=== PATIENT | male | born 1950 | race African-American/Black ===

== ENCOUNTER 2017-12-13 11:47 | Inpatient (IN) | payer OTHER ==
[2017-12-13 15:27] VITALS: BMI 25.1
--- NOTE | 2017-12-13 18:11 | HP ---
COWS - Scale Resting Pulse: 0= [place] 80 or Below Sweatin= Chills/Flushing Restless Observation: 1= Difficult to Sit Still Pupil Size: 1= Pupils >than Normal Bone or Joint Aches: 1= Mild Discomfort Runny Nose/ Eye Tearin= Runny Nose/Eyes GI Upset > 30mins: 3= Vomiting/Diarrhea Tremor Observation: 1= Tremor [place], Not Seen Yawning Observation: 2= >3x During Session Anxiety or Irritability: 2=Irritable/Anxious Goose Flesh Skin: 3=Piloerection COWS Score: 17 CIWA Score - CIWA Score Nausea/Vomitin-Int. Nausea w/Dry Heave Muscle Tremors: 3 Anxiety: 3 Agitation: 3 Paroxysmal Sweats: 3 Orientation: 0-Oriented Tacttile Disturbances: 1-Very Mild Itch/Numbness Auditory Disturbances: 0-None Visual Disturbances: 0-None Headache: 0-None Present CIWA-Ar Total Score: 17 Admission ROS S - HPI Chief Complaint: alcohol and opioid withdrawal symptoms Allergies/Adverse Reactions: Allergies Allergy/AdvReac Type Severity Reaction Status Date / Time No Known Allergies Allergy Verified 12/13/17 17:42 History of Present Illness: 67 yo male with heroin (paranal), alcohol and marijuana. Reports two weeks ago went [facility] for left leg swelling. Reports last detox four weeks ago at [facility]. PMHX: Hep C, and depression. Denies suicidal / homicidal ideation or hx of suicide attempts. Reports hx of OD x1 about one year ago. Denies hx of seizures or blackouts. Reports longest period sobriety 2 years. Exam Limitations: No Limitations - Ebola screening Have you traveled outside of the country in the last 21 days: No Have you had contact with anyone from an Ebola affected area: No Have you been sick,other than usual withdrawal symptoms: No Do you have a fever: No - Review of Systems Constitutional: Chills, Diaphoresis, Loss of Appetite, Changes in sleep, Unintentional Wgt. Loss EENT: reports: Dental Problems (poor dentition) Respiratory: reports: No Symptoms reported Cardiac: reports: Other (hx of frequent chest pain that comes and goes. denies chest pain at this time) GI: reports: Nausea, Poor Appetite, Poor Fluid Intake, Vomiting, Abdominal cramping : reports: No Symptoms Reported Musculoskeletal: reports: Back Pain, Joint Pain Integumentary: reports: No Symptoms Reported Neuro: reports: No Symptoms reported Endocrine: reports: Increased Thirst Hematology: reports: No Symptoms Reported Psychiatric: reports: Mood/Affect Appropiate, Orientated x3, Anxious Other Systems: Reviewed and Negative Patient History - Patient Medical History Hx Anemia: No Hx Asthma: No Hx Chronic Obstructive Pulmonary Disease (COPD): No Hx Cancer: No Hx Cardiac Disorders: No Hx Congestive Heart Failure: No Hx Hypertension: No Hx Hypercholesterolemia: No Hx Pacemaker: No HX Cerebrovascular Accident: No Hx Seizures: No Hx Dementia: No Hx Diabetes: No Hx Gastrointestinal Disorders: No Hx Liver Disease: Yes (Hep C ) Hx Genitourinary Disorders: No Hx Sexually Transmitted Disorders: No Hx Renal Disease (ESRD): No Hx Thyroid Disease: No Hx Human Immunodeficiency Virus (HIV): No Hx Hepatitis C: Yes Hx Depression: Yes Hx Suicide Attempt: No Hx Bipolar Disorder: No Hx Schizophrenia: No - Patient Surgical History Past Surgical History: No - PPD History Previous Implant?: No Documented Results: Negative w/o proof PPD to be Administered?: Yes - Smoking Cessation Smoking history: Never smoked Hx Chewing Tobacco Use: No Initiated information on smoking cessation: No - Substance & Tx. History Hx Alcohol Use: Yes Hx Substance Use: Yes Substance Use Type: Alcohol, Heroin, Marijuana Hx Substance Use Treatment: Yes ( Reports last detox four weeks ago at [facility].) - Substances Abused Heroin Route: SNIFF Frequency: Daily Amount used: 1 BUNDLE Age of first use: 15 Date of Last Use: 12/13/17 Alcohol Route: Oral Frequency: Daily Amount used: 4 PINTS Age of first use: 15 Date of Last Use: 12/13/17 Family Disease History - Family Disease History Family History: Unable to Obtain Admission Physical Exam BHS - Vital Signs Vital Signs: Vital Signs - 24 hr 12/13/17 15:25 Temperature 96 F L Pulse Rate 54 L Respiratory 20 Rate Blood Pressure 131/73 - Physical General Appearance: Yes: Disheveled, Moderate Distress, Thin, Tremorous, Sweating, Anxious HEENTM: Yes: EOMI, Hearing grossly Normal, Normal ENT Inspection, Normocephalic , Normal Voice, JOBY, Pharynx Normal, Tm's normal, Other (poor dentition) Respiratory: Yes: Chest Non-Tender, Lungs Clear, Normal Breath Sounds, No Respiratory Distress, No Accessory Muscle Use Neck: Yes: No masses,lesions,Nodules, Trachea in good position Breast: Yes: Breast Exam Deferred Cardiology: Yes: Regular Rhythm, Regular Rate Abdominal: Yes: Normal Bowel Sounds, Non Tender, Flat, Soft Genitourinary: Yes: Within Normal Limits Back: Yes: Normal Inspection Musculoskeletal: Yes: full range of Motion, Gait Steady, Pelvis Stable, Back pain Extremities: Yes: Normal Capillary Refill, Normal Inspection, Normal Range of Motion, Non-Tender Neurological: Yes: automotive paint technician II-XII NML intact, Fully Oriented, Alert, Motor Strength 5/5, Depressed Affect Integumentary: Yes: Normal Color, Warm, Diaphoresis Lymphatic: Yes: Within Normal Limits - Diagnostic (1) Alcohol dependence with withdrawal Current Visit: Yes Status: Acute Qualifiers: Complication of substance-induced condition: uncomplicated Qualified Code(s ): F10.230 - Alcohol dependence with withdrawal, uncomplicated (2) Opioid dependence with withdrawal Current Visit: Yes Status: Acute (3) Nausea and vomiting Current Visit: Yes Status: Acute Qualifiers: Vomiting type: unspecified Vomiting Intractability: unspecified Qualified Code(s): R11.2 - Nausea with vomiting, unspecified (4) Hepatitis C Current Visit: Yes Status: Chronic Qualifiers: Viral hepatitis chronicity: chronic Hepatic coma status: without hepatic coma Qualified Code(s): B18.2 - Chronic viral hepatitis C (5) Marijuana dependence Current Visit: Yes Status: Acute Cleared for Admission S - Detox or Rehab [facility] Level of Care: Medically Managed Detox Regimen/Protocol: Methadone/Librium S Breath Alcohol Content Breath Alcohol Content: 0 Urine Drug Screen - Results Drug Screen Negative: No Urine Drug Screen Results: THC-Marijuana, OPI-Opiates, BZO-Benzodiazepines
[2017-12-13] MEDS ORDERED: MAGNESIUM CITRATE 300 ML BOTTLE PO PRN (18:22)
[2017-12-13] MEDS ORDERED: P-EPHED 60MG/TRIPROLIDI 2.5MG TABLET PO PRN (18:22)
[2017-12-13] MEDS ORDERED: MAGNESIUM HYDROX 2400MG/30ML ORAL SUSPENSION 30 ML CUP PO PRN (18:22)
[2017-12-13] MEDS ORDERED: MENTHOL/PHENOL 1 EACH UD MM PRN (18:22)
[2017-12-13] MEDS ORDERED: LOPERAMIDE HCL 2 MG CAPSULE PO PRN (18:22)
[2017-12-13] MEDS ORDERED: MAG HYDROX/AL HYDROX/SIMETH 30 ML UNIT-DOSE CUP PO PRN (18:22)
[2017-12-13] MEDS ORDERED: ACETAMINOPHEN 325 MG TABLET (FP) PO PRN (18:22)
[2017-12-13] MEDS ORDERED: guaiFENesin/D-METHORPHAN HB 10 ML UNIT-DOSE CUPS PO PRN (18:22)
[2017-12-13] MEDS ORDERED: chlordiazePOXIDE HCL 25 MG CAPSULE PO PRN (18:22)
[2017-12-13] MEDS ORDERED: IBUPROFEN 400 MG TABLET (FP) PO PRN (18:22)
[2017-12-13] MEDS ORDERED: ONDANSETRON *ODT* 4 MG TABLET SL PRN (18:35)
[2017-12-13] MEDS ORDERED: METHADONE HCL 10 MG TABLET (FOR DETOX USE ONLY) PO ONE ×2 (18:45→23:00)
[2017-12-13] MEDS ORDERED: chlordiazePOXIDE HCL 25 MG CAPSULE PO ONE (18:45)
[2017-12-13] MEDS: THIAMINE HCL 100 MG TABLET (FP) PO SCH (22:35)
[2017-12-13] MEDS: chlordiazePOXIDE HCL 25 MG CAPSULE PO SCH (22:35)
[2017-12-14 03:04] LABS: URINE APPEARANCE CLEAR; URINE BILIRUBIN NEGATIVE (<2.0 mg/dL); URINE COLOR AMBER; URINE GLUCOSE (UA) NEGATIVE (NEGATIVE); URINE KETONE 1+ (NEGATIVE); URINE LEUK ESTERASE NEGATIVE (NEGATIVE); URINE NITRITE NEGATIVE (NEGATIVE); URINE UROBILINOGEN 4.0 E.U/dl mg/dL (0.2-1.0)
[2017-12-14 03:09] LABS: URINE PROTEIN 2+ (NEGATIVE)
[2017-12-14 03:13] LABS: EPI CELLS RARE /HPF (FEW); URINE BACTERIA RARE /hpf (NONE SEEN); URINE HYALINE CAST 12 /lpf; URINE MUCUS MANY
[2017-12-14] MEDS: chlordiazePOXIDE HCL 25 MG CAPSULE PO SCH ×4 (05:53→22:13)
[2017-12-14] MEDS ORDERED: METHADONE HCL 10 MG TABLET (FOR DETOX USE ONLY) PO SCH (10:00)
[2017-12-14] MEDS: PRENATAL VITAMINS W/ FOLIC ACID TABLET (FP) PO SCH (10:13)
--- NOTE | 2017-12-14 10:30 | EKG ---
Test Reason : Blood Pressure : / mmHG Vent. Rate : 054 BPM Atrial Rate : 054 BPM P-R Int : 156 ms QRS Dur : 086 ms QT Int : 458 ms P-R-T Axes : 030 -10 030 degrees QTc Int : 434 ms POOR DATA QUALITY, INTERPRETATION MAY BE ADVERSELY AFFECTED SINUS BRADYCARDIA OTHERWISE NORMAL ECG NO PREVIOUS ECGS AVAILABLE Confirmed by JANKI KWAN MD ([id number]) on 12/14/2017 10:30:00 AM Referred By: Confirmed By:JANKI KWAN MD
[2017-12-14 10:53] LABS: HEMATOCRIT 42.2 % (35.4-49); HEMOGLOBIN 14.4 GM/dL (11.7-16.9); MCH 31.6 pg (25.7-33.7); MCHC 34.1 g/dl (32.0-35.9); MEAN CELL VOLUME 92.6 fl (80-96); MEAN PLT VOLUME 8.9 fl (7.5-11.1); PLATELET COUNT 246 K/MM3 (134-434); RBC 4.56 M/mm3 (4.00-5.60); RDW 13.7 % (11.9-15.9); WHITE BLOOD COUNT 7.1 K/mm3 (4.0-10.0)
[2017-12-14 11:38] LABS: ALBUMIN 3.4 g/dl (3.4-5.0); ANION GAP 10 (8-16); BLOOD UREA NITROGEN 7 mg/dL (7-18); CHLORIDE 101 mmol/L (98-107); CO2 31 mmol/L (21-32); GLUCOSE,RANDOM 76 mg/dL (74-106); POTASSIUM 3.4 mmol/L (3.5-5.1); SODIUM 142 mmol/L (136-145)
[2017-12-14 11:42] LABS: ALK PHOS 101 U/L (45-117); BILIRUBIN,TOTAL 1.1 mg/dL (0.2-1.0); CREATININE 0.8 mg/dL (0.7-1.3); SGOT/AST 66 U/L (15-37); SGPT/ALT 31 U/L (12-78); TOT PROT 7.2 g/dl (6.4-8.2)
--- NOTE | 2017-12-14 12:17 | CONSULT ---
[facility] Psychiatric Consult - Data Date of interview: 12/14/17 Admission source: [facility] Identifying data: Patient is a 67 year old male, , father of four, living with aunt, and supported by [facility]. This is patient's first admission to detox at [facility]. Pt. admitted to for alcohol and opiate dependence. Substance Abuse History: Smoking Cessation. Smoking history: Never smoked. Hx Chewing Tobacco Use: No. Initiated information on smoking cessation: No. - Substance & Tx. History. Hx Alcohol Use: Yes. Hx Substance Use: Yes. Substance Use Type: Alcohol, Heroin, Marijuana. Hx Substance Use Treatment: Yes ( Reports last detox four weeks ago at [facility] - Substances Abused. Heroin. Route: SNIFF. Frequency: Daily. Amount used: 1 BUNDLE. Age of first use: 15. Date of Last Use: 12/13/17. Alcohol. Route: Oral. Frequency: Daily. Amount used: 4 PINTS. Age of first use: 15. Date of Last Use: 12/13/17 Medical History: Hep C Psychiatric History: Patient denies h/o psychiatric hospitalizations, outpatient care, and suicide attempt. Physical/Sexual Abuse/Trauma History: Denies. Mental Status Exam - Mental Status Exam Alert and Oriented to: Time, Place, Person Cognitive Function: Good Patient Appearance: Well Groomed Mood: Euthymic Affect: Mood Congruent Patient Behavior: Cooperative Speech Pattern: Clear (Pt. has a speech disorder (stuttering, stammering)) Voice Loudness: Normal Thought Process: Intact, Goal Oriented Thought Disorder: Not Present Hallucinations: Denies Suicidal Ideation: Denies Homicidal Ideation: Denies Insight/Judgement: Poor Sleep: Fair Appetite: Fair Muscle strength/Tone: Normal Gait/Station: Normal Psychiatric Findings - Problem List ([place] 1, 2,3) (1) Alcohol dependence with withdrawal Current Visit: Yes Status: Acute Qualifiers: Complication of substance-induced condition: uncomplicated Qualified Code(s ): F10.230 - Alcohol dependence with withdrawal, uncomplicated (2) Marijuana dependence Current Visit: Yes Status: Acute (3) Opioid dependence with withdrawal Current Visit: Yes Status: Acute - Initial Treatment Plan Initial Treatment Plan: Psychoeducation provided. Detoxification in progress. Observation.
[2017-12-14] MEDS ORDERED: POTASSIUM CHLORIDE ORAL LIQUID 20 MEQ/15 ML PO ONE (12:32)
--- NOTE | 2017-12-14 12:33 | PN ---
[facility] CIWA - CIWA Score Nausea/Vomitin-No Nausea/No Vomiting Muscle Tremors: 4-Moderate,w/Arms Extend Anxiety: 4-Mod. Anxious/Guarded Agitation: 4-Moderately Restless Paroxysmal Sweats: 1-Minimal Palms Moist Orientation: 0-Oriented Tacttile Disturbances: 0-None Auditory Disturbances: 0-None Visual Disturbances: 0-None Headache: 0-None Present CIWA-Ar Total Score: 13 S COWS - Scale Resting Pulse: 0= [place] 80 or Below Sweatin= Chills/Flushing Restless Observation: 3= Extraneous Movement Pupil Size: 2= Moderately Dilated Bone or Joint Aches: 1= Mild Discomfort Runny Nose/ Eye Tearin= None GI Upset > 30mins: 2= Nausea/Diarrhea Tremor Observation of Outstretched Hands: 1= Tremor [place], Not Seen Yawning Observation: 0= None Anxiety or Irritability: 2=Irritable/Anxious Goose Flesh Skin: 0=Smooth Skin COWS Score: 12 S Progress Note (SOAP) Subjective: ANXIETY,CHILLS,FATIGUE,DIARRHEA. Objective: 12/14/17 12:30 Laboratory Tests 12/13/17 12/14/17 12/14/17 22:30 07:30 07:30 WBC 7.1 RBC 4.56 Hgb 14.4 Hct 42.2 MCV 92.6 MCH 31.6 MCHC 34.1 RDW 13.7 Plt Count 246 MPV 8.9 Sodium 142 Potassium 3.4 L Chloride 101 Carbon Dioxide 31 Anion Gap 10 BUN 7 Creatinine 0.8 Creat Clearance w eGFR > 60 Random Glucose 76 Calcium 9.0 Total Bilirubin 1.1 H AST 66 H ALT 31 Alkaline Phosphatase 101 Total Protein 7.2 Albumin 3.4 Urine Color Marsha Urine Appearance Clear Urine pH 5.0 Ur Specific [place] 1.027 Urine Protein 2+ H Urine Glucose (UA) Negative Urine Ketones 1+ H Urine Blood 1+ H Urine Nitrite Negative Urine Bilirubin Negative Urine Urobilinogen 4.0 e.u/dl Ur Leukocyte Esterase Negative Urine WBC (Auto) 4 Urine RBC (Auto) 1 Ur Epithelial Cells Rare Urine Bacteria Rare Hyaline Casts 12 Urine Mucus Many Vital Signs 12/14/17 12/14/17 06:26 09:47 Temperature 98.0 F 97.4 F L Pulse Rate 56 L 68 Respiratory 18 20 Rate Blood Pressure 123/78 134/80 LABS NOTED Assessment: 12/14/17 12:30 WITHDRAWAL SX BORDERLINE HYPOKALEMIA Plan: CONTINUE DETOX KDUR 20 MEQ PO BID X 3 DAYS , FIRST DOSE NOW
[2017-12-14] MEDS: THIAMINE HCL 100 MG TABLET (FP) PO SCH (22:12)
[2017-12-14] MEDS: MELATONIN 5 MG TABLETS PO PRN (22:13)
[2017-12-14] MEDS: POTASSIUM CHLORIDE ORAL LIQUID 20 MEQ/15 ML PO SCH (22:13)
[2017-12-15] MEDS: chlordiazePOXIDE HCL 25 MG CAPSULE PO SCH ×3 (05:20→17:38)
[2017-12-15] MEDS: METHADONE HCL 5 MG TABLET (FOR DETOX USE ONLY) PO SCH (10:49)
[2017-12-15] MEDS: PRENATAL VITAMINS W/ FOLIC ACID TABLET (FP) PO SCH (10:49)
[2017-12-15] MEDS: POTASSIUM CHLORIDE ORAL LIQUID 20 MEQ/15 ML PO SCH ×2 (10:49→22:14)
--- NOTE | 2017-12-15 12:33 | PN ---
S CIWA - CIWA Score Nausea/Vomitin-No Nausea/No Vomiting Muscle Tremors: 4-Moderate,w/Arms Extend Anxiety: 4-Mod. Anxious/Guarded Agitation: 4-Moderately Restless Paroxysmal Sweats: 1-Minimal Palms Moist Orientation: 0-Oriented Tacttile Disturbances: 0-None Auditory Disturbances: 0-None Visual Disturbances: 0-None Headache: 0-None Present CIWA-Ar Total Score: 13 BHS COWS - Scale Resting Pulse: 0= [place] 80 or Below Sweatin= Chills/Flushing Restless Observation: 3= Extraneous Movement Pupil Size: 2= Moderately Dilated Bone or Joint Aches: 4=Acute Joint/Muscle Pain Runny Nose/ Eye Tearin= None GI Upset > 30mins: 0= None Tremor Observation of Outstretched Hands: 2= Slight Tremor Visible Yawning Observation: 1= 1-2x During Session Anxiety or Irritability: 2=Irritable/Anxious Goose Flesh Skin: 0=Smooth Skin COWS Score: 15 S Progress Note (SOAP) Subjective: ANXIETY,SWEATS,CHILLS,MUSCLE ACHES. Objective: 12/15/17 12:32 Vital Signs 12/15/17 12/15/17 12/15/17 06:09 06:30 09:28 Temperature 97.6 F 97.2 F L Pulse Rate 60 64 Respiratory 18 18 18 Rate Blood Pressure 122/73 129/77 Laboratory Tests 12/13/17 12/14/17 12/14/17 22:30 07:30 07:30 WBC 7.1 RBC 4.56 Hgb 14.4 Hct 42.2 MCV 92.6 MCH 31.6 MCHC 34.1 RDW 13.7 Plt Count 246 MPV 8.9 Sodium 142 Potassium 3.4 L Chloride 101 Carbon Dioxide 31 Anion Gap 10 BUN 7 Creatinine 0.8 Creat Clearance w eGFR > 60 Random Glucose 76 Calcium 9.0 Total Bilirubin 1.1 H AST 66 H ALT 31 Alkaline Phosphatase 101 Total Protein 7.2 Albumin 3.4 Urine Color Marsha Urine Appearance Clear Urine pH 5.0 Ur Specific [place] 1.027 Urine Protein 2+ H Urine Glucose (UA) Negative Urine Ketones 1+ H Urine Blood 1+ H Urine Nitrite Negative Urine Bilirubin Negative Urine Urobilinogen 4.0 e.u/dl Ur Leukocyte Esterase Negative Urine WBC (Auto) 4 Urine RBC (Auto) 1 Ur Epithelial Cells Rare Urine Bacteria Rare Hyaline Casts 12 Urine Mucus Many RPR Titer 12/14/17 07:30 WBC RBC Hgb Hct MCV MCH MCHC RDW Plt Count MPV Sodium Potassium Chloride Carbon Dioxide Anion Gap BUN Creatinine Creat Clearance w eGFR Random Glucose Calcium Total Bilirubin AST ALT Alkaline Phosphatase Total Protein Albumin Urine Color Urine Appearance Urine pH Ur Specific [place] Urine Protein Urine Glucose (UA) Urine Ketones Urine Blood Urine Nitrite Urine Bilirubin Urine Urobilinogen Ur Leukocyte Esterase Urine WBC (Auto) Urine RBC (Auto) Ur Epithelial Cells Urine Bacteria Hyaline Casts Urine Mucus RPR Titer Nonreactive Assessment: 12/15/17 12:32 WITHDRAWAL SX Plan: CONTINUE DETOX INCREASE PO FLUIDS MOTRIN PRN
--- NOTE | 2017-12-15 16:49 | EKG ---
Test Reason : Blood Pressure : / mmHG Vent. Rate : 060 BPM Atrial Rate : 060 BPM P-R Int : 184 ms QRS Dur : 092 ms QT Int : 432 ms P-R-T Axes : 069 -12 023 degrees QTc Int : 432 ms NORMAL SINUS RHYTHM NORMAL ECG WHEN COMPARED WITH ECG OF 13-DEC-2017 20:11, NO SIGNIFICANT CHANGE WAS FOUND Confirmed by KASSIE RABAGO MD ([id number]) on 12/15/2017 3:51:47 PM Referred By: Confirmed By:KASSIE RABAGO MD
[2017-12-15] MEDS: chlordiazePOXIDE 5 MG CAPSULE PO SCH (22:14)
[2017-12-15] MEDS: THIAMINE HCL 100 MG TABLET (FP) PO SCH (22:14)
[2017-12-16] MEDS: chlordiazePOXIDE 5 MG CAPSULE PO SCH ×3 (05:56→17:37)
[2017-12-16 10:55] LABS: CALCIUM 8.9 mg/dL (8.5-10.1); CHLORIDE 102 mmol/L (98-107); POTASSIUM 4.6 mmol/L (3.5-5.1); SODIUM 141 mmol/L (136-145)
[2017-12-16] MEDS: POTASSIUM CHLORIDE ORAL LIQUID 20 MEQ/15 ML PO SCH ×2 (10:57→22:08)
[2017-12-16] MEDS: PRENATAL VITAMINS W/ FOLIC ACID TABLET (FP) PO SCH (10:57)
[2017-12-16] MEDS: METHADONE HCL 5 MG TABLET (FOR DETOX USE ONLY) PO SCH (10:58)
[2017-12-16 11:01] LABS: ALBUMIN 3.2 g/dl (3.4-5.0); ALK PHOS 100 U/L (45-117); ANION GAP 5 (8-16); BILIRUBIN,TOTAL 0.4 mg/dL (0.2-1.0); BLOOD UREA NITROGEN 6 mg/dL (7-18); CO2 34 mmol/L (21-32); CREATININE 0.8 mg/dL (0.7-1.3); GLUCOSE,RANDOM 101 mg/dL (74-106); SGOT/AST 38 U/L (15-37); SGPT/ALT 29 U/L (12-78); TOT PROT 7.2 g/dl (6.4-8.2)
--- NOTE | 2017-12-16 13:00 | PN ---
BHS Progress Note (SOAP) Subjective: ANXIETY,SWEATS,FATIGUE. Objective: 12/16/17 13:00 Vital Signs 12/16/17 12/16/17 06:09 09:32 Temperature 96.7 F L 97.7 F Pulse Rate 57 L 74 Respiratory 18 18 Rate Blood Pressure 132/81 124/80 Laboratory Tests 12/13/17 12/14/17 12/14/17 22:30 07:30 07:30 WBC 7.1 RBC 4.56 Hgb 14.4 Hct 42.2 MCV 92.6 MCH 31.6 MCHC 34.1 RDW 13.7 Plt Count 246 MPV 8.9 Sodium 142 Potassium 3.4 L Chloride 101 Carbon Dioxide 31 Anion Gap 10 BUN 7 Creatinine 0.8 Creat Clearance w eGFR > 60 Random Glucose 76 Calcium 9.0 Total Bilirubin 1.1 H AST 66 H ALT 31 Alkaline Phosphatase 101 Total Protein 7.2 Albumin 3.4 Urine Color Marsha Urine Appearance Clear Urine pH 5.0 Ur Specific [place] 1.027 Urine Protein 2+ H Urine Glucose (UA) Negative Urine Ketones 1+ H Urine Blood 1+ H Urine Nitrite Negative Urine Bilirubin Negative Urine Urobilinogen 4.0 e.u/dl Ur Leukocyte Esterase Negative Urine WBC (Auto) 4 Urine RBC (Auto) 1 Ur Epithelial Cells Rare Urine Bacteria Rare Hyaline Casts 12 Urine Mucus Many RPR Titer 12/14/17 12/16/17 07:30 07:00 WBC RBC Hgb Hct MCV MCH MCHC RDW Plt Count MPV Sodium 141 Potassium 4.6 D Chloride 102 Carbon Dioxide 34 H Anion Gap 5 L BUN 6 L Creatinine 0.8 Creat Clearance w eGFR > 60 Random Glucose 101 D Calcium 8.9 Total Bilirubin 0.4 AST 38 H D ALT 29 Alkaline Phosphatase 100 Total Protein 7.2 Albumin 3.2 L Urine Color Urine Appearance Urine pH Ur Specific [place] Urine Protein Urine Glucose (UA) Urine Ketones Urine Blood Urine Nitrite Urine Bilirubin Urine Urobilinogen Ur Leukocyte Esterase Urine WBC (Auto) Urine RBC (Auto) Ur Epithelial Cells Urine Bacteria Hyaline Casts Urine Mucus RPR Titer Nonreactive Assessment: 12/16/17 13:00 WITHDRAWAL SX Plan: CONTINUE DETOX
[2017-12-16] MEDS: chlordiazePOXIDE HCL 10 MG CAPSULE PO SCH (22:08)
[2017-12-16] MEDS: THIAMINE HCL 100 MG TABLET (FP) PO SCH (22:08)
[2017-12-16] MEDS: MELATONIN 5 MG TABLETS PO PRN (22:08)
[2017-12-17] MEDS: chlordiazePOXIDE HCL 10 MG CAPSULE PO SCH ×3 (05:54→17:44)
[2017-12-17] MEDS ORDERED: METHADONE HCL 10 MG TABLET (FOR DETOX USE ONLY) PO SCH (10:00)
[2017-12-17] MEDS: PRENATAL VITAMINS W/ FOLIC ACID TABLET (FP) PO SCH (10:26)
[2017-12-17] MEDS: POTASSIUM CHLORIDE ORAL LIQUID 20 MEQ/15 ML PO SCH (10:27)
--- NOTE | 2017-12-17 12:32 | PN ---
BHS Progress Note (SOAP) Subjective: ANXIETY,SWEATS,FATIGUE,SWEATS,INTERMITTENT SLEEP. Objective: 12/17/17 12:32 Vital Signs 12/17/17 12/17/17 12/17/17 06:18 06:30 09:32 Temperature 97.0 F L 97.0 F L Pulse Rate 58 L 60 Respiratory 18 18 18 Rate Blood Pressure 121/75 98/62 Laboratory Tests 12/13/17 12/14/17 12/14/17 22:30 07:30 07:30 WBC 7.1 RBC 4.56 Hgb 14.4 Hct 42.2 MCV 92.6 MCH 31.6 MCHC 34.1 RDW 13.7 Plt Count 246 MPV 8.9 Sodium 142 Potassium 3.4 L Chloride 101 Carbon Dioxide 31 Anion Gap 10 BUN 7 Creatinine 0.8 Creat Clearance w eGFR > 60 Random Glucose 76 Calcium 9.0 Total Bilirubin 1.1 H AST 66 H ALT 31 Alkaline Phosphatase 101 Total Protein 7.2 Albumin 3.4 Urine Color Marsha Urine Appearance Clear Urine pH 5.0 Ur Specific [place] 1.027 Urine Protein 2+ H Urine Glucose (UA) Negative Urine Ketones 1+ H Urine Blood 1+ H Urine Nitrite Negative Urine Bilirubin Negative Urine Urobilinogen 4.0 e.u/dl Ur Leukocyte Esterase Negative Urine WBC (Auto) 4 Urine RBC (Auto) 1 Ur Epithelial Cells Rare Urine Bacteria Rare Hyaline Casts 12 Urine Mucus Many RPR Titer 12/14/17 12/16/17 07:30 07:00 WBC RBC Hgb Hct MCV MCH MCHC RDW Plt Count MPV Sodium 141 Potassium 4.6 D Chloride 102 Carbon Dioxide 34 H Anion Gap 5 L BUN 6 L Creatinine 0.8 Creat Clearance w eGFR > 60 Random Glucose 101 D Calcium 8.9 Total Bilirubin 0.4 AST 38 H D ALT 29 Alkaline Phosphatase 100 Total Protein 7.2 Albumin 3.2 L Urine Color Urine Appearance Urine pH Ur Specific [place] Urine Protein Urine Glucose (UA) Urine Ketones Urine Blood Urine Nitrite Urine Bilirubin Urine Urobilinogen Ur Leukocyte Esterase Urine WBC (Auto) Urine RBC (Auto) Ur Epithelial Cells Urine Bacteria Hyaline Casts Urine Mucus RPR Titer Nonreactive Assessment: 12/17/17 12:32 WITHDRAWAL SX Plan: CONTINUE DETOX
[2017-12-17] MEDS: MELATONIN 5 MG TABLETS PO PRN (22:58)
[2017-12-17] MEDS: THIAMINE HCL 100 MG TABLET (FP) PO SCH (22:58)
[2017-12-18] MEDS ORDERED: METHADONE HCL 5 MG TABLET (FOR DETOX USE ONLY) PO SCH (06:00)
[2017-12-18] MEDS: PRENATAL VITAMINS W/ FOLIC ACID TABLET (FP) PO SCH (10:23)
--- NOTE | 2017-12-18 14:18 | PN ---
BHS Progress Note (SOAP) Subjective: Tremor, sweats, chills Objective: 12/18/17 14:16 Last Vital Signs Temp Pulse Resp BP Pulse Ox 97.1 F L 70 18 124/74 12/18/17 14:02 12/18/17 14:02 12/18/17 14:02 12/18/17 14:02 Laboratory Tests 12/13/17 12/14/17 12/14/17 22:30 07:30 07:30 WBC 7.1 RBC 4.56 Hgb 14.4 Hct 42.2 MCV 92.6 MCH 31.6 MCHC 34.1 RDW 13.7 Plt Count 246 MPV 8.9 Sodium 142 Potassium 3.4 L Chloride 101 Carbon Dioxide 31 Anion Gap 10 BUN 7 Creatinine 0.8 Creat Clearance w eGFR > 60 Random Glucose 76 Calcium 9.0 Total Bilirubin 1.1 H AST 66 H ALT 31 Alkaline Phosphatase 101 Total Protein 7.2 Albumin 3.4 Urine Color Marsha Urine Appearance Clear Urine pH 5.0 Ur Specific [place] 1.027 Urine Protein 2+ H Urine Glucose (UA) Negative Urine Ketones 1+ H Urine Blood 1+ H Urine Nitrite Negative Urine Bilirubin Negative Urine Urobilinogen 4.0 e.u/dl Ur Leukocyte Esterase Negative Urine WBC (Auto) 4 Urine RBC (Auto) 1 Ur Epithelial Cells Rare Urine Bacteria Rare Hyaline Casts 12 Urine Mucus Many RPR Titer 12/14/17 12/16/17 07:30 07:00 WBC RBC Hgb Hct MCV MCH MCHC RDW Plt Count MPV Sodium 141 Potassium 4.6 D Chloride 102 Carbon Dioxide 34 H Anion Gap 5 L BUN 6 L Creatinine 0.8 Creat Clearance w eGFR > 60 Random Glucose 101 D Calcium 8.9 Total Bilirubin 0.4 AST 38 H D ALT 29 Alkaline Phosphatase 100 Total Protein 7.2 Albumin 3.2 L Urine Color Urine Appearance Urine pH Ur Specific [place] Urine Protein Urine Glucose (UA) Urine Ketones Urine Blood Urine Nitrite Urine Bilirubin Urine Urobilinogen Ur Leukocyte Esterase Urine WBC (Auto) Urine RBC (Auto) Ur Epithelial Cells Urine Bacteria Hyaline Casts Urine Mucus RPR Titer Nonreactive Labs reviewed: UA shows 1+ blood Assessment: 12/18/17 14:16 Withdrawal symptoms Noted with microscopic hematuria Plan: Continue detox Microscopic hematuria: encouraged PO water hydration, repeat UA
[2017-12-18 18:33] LABS: URINE APPEARANCE CLEAR; URINE BILIRUBIN NEGATIVE (<2.0 mg/dL); URINE COLOR LTYELLOW; URINE GLUCOSE (UA) NEGATIVE (NEGATIVE); URINE KETONE NEGATIVE (NEGATIVE); URINE LEUK ESTERASE NEGATIVE (NEGATIVE); URINE NITRITE NEGATIVE (NEGATIVE); URINE PROTEIN NEGATIVE (NEGATIVE); URINE UROBILINOGEN NEGATIVE mg/dL (0.2-1.0)
[2017-12-18] MEDS: THIAMINE HCL 100 MG TABLET (FP) PO SCH (22:40)
[2017-12-18] MEDS: MELATONIN 5 MG TABLETS PO PRN (22:40)
[2017-12-19 09:30] VITALS: BP 123/84; PULSE 100; TEMP 97.3
--- NOTE | 2017-12-19 12:59 | PN ---
S Progress Note (SOAP) Subjective: Subjective: Denies any complaints Objective: 12/19/17 12:56 A & O x 3 In no distress Vital Signs Temperature 97.3 F L 12/19/17 09:29 Pulse Rate 100 H 12/19/17 09:29 Respiratory Rate 20 12/19/17 09:29 Blood Pressure 123/84 12/19/17 09:29 O2 Sat by Pulse Oximetry (%) Assessment: 12/19/17 12:56 Detox successfully completed Plan: For discharge
--- NOTE | 2017-12-19 13:05 | DS ---
[facility] Detox Discharge Summary Admission Date: 12/13/17 Discharge Date: 12/19/17 - History Additional Comments: Pt A & O x 3, discharged home in stable condition. Pt declines Rehab, states he will do aftercare by going to AA meetings at [facility]. Not on Home meds. - Physical Exam Results Vital Signs: Vital Signs Temperature 97.3 F L 12/19/17 09:29 Pulse Rate 100 H 12/19/17 09:29 Respiratory Rate 20 12/19/17 09:29 Blood Pressure 123/84 12/19/17 09:29 O2 Sat by Pulse Oximetry (%) - Treatment Hospital Course: Detox Protocol Followed, Detoxed Safely, Responded well, Discharged Condition Good Patient has Accepted a Rehab Referral to: Out patient AA meeting - Medication Discharge Medications: Ambulatory Orders NK [No Known Home Medication] 12/13/17 - AMA Did Patient Leave Against Medical Advice: No
== END 2017-12-19 10:18 | disposition home or self-care (01) | DRG 773 ==
LOC: YASAS 11:47 → Y3N 17:52
PROVIDERS: ADMIT Surgery; ATTEND Surgery
PROC: HZ2ZZZZ Detoxification Services for Substance Abuse Treatment (ICD-10-PCS; principal; 2017-12-13)
DX: F11.23 Opioid dependence with withdrawal (principal); F10.230 Alcohol dependence with withdrawal, uncomplicated; F12.20 Cannabis dependence, uncomplicated; E87.6 Hypokalemia; B18.2 Chronic viral hepatitis C; D50.9 Iron deficiency anemia, unspecified; R11.2 Nausea with vomiting, unspecified
CPT/HCPCS: 36415; 71046-TC-FY; 80053; 81003; 81015; 85027; 86593; 93005; 93010; Q0162